=== PATIENT | male | born 1995 | race African-American/Black ===

== ENCOUNTER 2016-07-26 02:51 | Emergency (ER) | payer SELFPAY ==
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
== END 2016-07-26 04:31 | disposition home or self-care (01) ==
LOC: NAV ERS 02:51
DX: S09.93XA Unspecified injury of face, initial encounter (principal); S50.01XA Contusion of right elbow, initial encounter; S80.812A Abrasion, left lower leg, initial encounter; F17.210 Nicotine dependence, cigarettes, uncomplicated; W22.8XXA Striking against or struck by other objects, initial encounter
CPT/HCPCS: 70450; 70486

== ENCOUNTER 2017-05-19 19:41 | Emergency (ER) | payer SELFPAY ==
[2017-05-19] MEDS ORDERED: Ibuprofen 800 MG TAB ONE (19:54)
[2017-05-19] MEDS ORDERED: Acetaminophen 500 MG TAB ONE (19:54)
== END 2017-05-19 20:11 | disposition home or self-care (01) ==
LOC: NAV ERS 19:41
DX: J11.1 Influenza due to unidentified influenza virus with other respiratory manifestations (principal); F17.210 Nicotine dependence, cigarettes, uncomplicated
CPT/HCPCS: 99283

== ENCOUNTER 2019-02-14 12:19 | Emergency (ER) | payer SELFPAY ==
[2019-02-14] MEDS ORDERED: Azithromycin 250 MG TAB ONE (12:51)
[2019-02-14] MEDS ORDERED: Lidocaine 1% (PF) 30 ML VIAL ONE (12:51)
[2019-02-14] MEDS ORDERED: cefTRIAXone\\ROCEPHIN 250 MG VIAL ONE (12:51)
[2019-02-14 20:11] LABS: Chlam.trachomatis by PCR,Urine Not Detected (NotDetected)
[2019-02-14 22:16] LABS: Syphilis Antibody Nonreactive (Nonreactive); Syphilis Antibody Index 0.06 S/CO (<1.00 Non-Reactive)
[2019-02-14 23:31] LABS: HBCM Index 0.06 S/CO (0-0.79); HBSAg Index 0.16 S/CO (0-0.99); HIV (1/2) Antibody/Antigen Non-Reactive (NonReactive); HIV 1/2 INDEX 0.06 S/CO (<1.00); Hep A IgM AB Non-Reactive (NonReactive); Hep B Surf Ag Non-Reactive S/CO (NonReactive); Hep C IgG Ab Non-Reactive (NonReactive); Hep C Index 0.05 S/CO (0-0.79); Hepatitis B Core IgM Abs Non-Reactive (NonReactive)
== END 2019-02-14 13:15 | disposition home or self-care (01) ==
LOC: NAV ERS 12:19
DX: N34.1 Nonspecific urethritis (principal); F17.210 Nicotine dependence, cigarettes, uncomplicated
CPT/HCPCS: 36415; 80074; 86780; 87389; 87491; 87591; 96372; 99283; J0696; J2001

== ENCOUNTER 2019-03-14 18:22 | Emergency (ER) | payer SELFPAY ==
[2019-03-14] MEDS ORDERED: Acetaminophen 500 MG TAB ONE (18:50)
[2019-03-14] MEDS ORDERED: Ibuprofen 800 MG TAB ONE (18:50)
[2019-03-14] MEDS ORDERED: Ondansetron ODT 4 MG TAB ONE (18:50)
[2019-03-14] MEDS ORDERED: Sodium Chloride 0.9% 1,000 ML ONE (19:16)
--- NOTE | 2019-03-14 19:37 | CT ---
EXAM: CT brain without contrast HISTORY: Headache COMPARISON: 07/26/2016 TECHNIQUE: Multiple contiguous axial images were obtained and a CT of the brain without contrast. FINDINGS: The brain is normal in morphology and attenuation without focal lesions or confluent areas of infarction. There is no evidence of hydrocephalus, intracranial hemorrhage, or extra-axial fluid collection. The calvarium and overlying soft tissues are unremarkable. The visualized paranasal sinuses and masto id air cells are well aerated. IMPRESSION: No evidence of acute intracranial abnormality
[2019-03-14 19:47] LABS: ALT (SGPT) 27 U/L (8-55); AST (SGOT) 27 U/L (5-34); Albumin 4.4 g/dL (3.5-5.0); Alkaline Phosphatase 55 U/L (40-110); Anion Gap 16 mmol/L (10-20); BUN (Urea Nitrogen) 9 mg/dL (8.9-20.6); Bilirubin, Total 0.8 mg/dL (0.2-1.2); CRP (Inflammatory) 0.79 mg/dL (= or < 0.5); Calc. Creatinine Clearance 0 mL/min (70-130); Calcium 9.2 mg/dL (7.8-10.44); Carbon Dioxide 22 mmol/L (22-29); Chloride 101 mmol/L (98-107); Estimated GFR-MDRD Greater than 90; Globulin 3.3 g/dL (2.4-3.5); Glucose 103 mg/dL (70-105); Potassium 3.8 mmol/L (3.5-5.1); Protein, Total 7.7 g/dL (6.0-8.3); Sodium 135 mmol/L (136-145)
[2019-03-14 19:52] LABS: Hemoglobin 15.5 g/dL (14.0-18.0); Mean Corpuscular HGB CONC 32.7 g/dL (32.0-36.0); Mean Corpuscular Hemoglobin 29.9 pg (27.0-31.0); Mean Corpuscular Volume 91.5 fL (78.0-98.0); Mean Platelet Volume 9.1 fL (7.4-10.4); Platelet Count 185 thou/uL (130-400); RBC Distribution Width 11.1 % (11.5-14.5); Red Blood Cell (RBC) Count 5.19 mill/uL (4.70-6.10)
[2019-03-14 20:08] LABS: Band 1 % (5-11); Lymphocytes 17 % (21-51); MDiff Complete? YES; Monocytes 13 % (0-10); Neutrophil 69 % (42-75); Platelet Morphology Comment Appears Adequate; RBC Morphology Normal
== END 2019-03-14 20:38 | disposition home or self-care (01) ==
LOC: NAV ERS 18:22
DX: R51 Headache (principal); R50.9 Fever, unspecified; F17.210 Nicotine dependence, cigarettes, uncomplicated
CPT/HCPCS: 70450; 80053; 83605; 85025; 86140; 87081; 87430; 87804; J7050; Q0162

== ENCOUNTER 2022-01-15 14:27 | Emergency (ER) | payer SELFPAY ==
[2022-01-15] MEDS ORDERED: Cyclobenzaprine 10 MG TAB ONE (14:55)
[2022-01-15] MEDS ORDERED: Ibuprofen 800 MG TAB ONE (14:55)
== END 2022-01-15 15:08 | disposition home or self-care (01) ==
LOC: NAV ERS 14:27
DX: S39.012A Strain of muscle, fascia and tendon of lower back, initial encounter (principal); X50.0XXA Overexertion from strenuous movement or load, initial encounter; F17.210 Nicotine dependence, cigarettes, uncomplicated
CPT/HCPCS: 99283

== ENCOUNTER 2022-10-20 10:57 | Emergency (ER) | payer SELFPAY | END 2022-10-20 12:04 | disposition home or self-care (01) | LOC: NAV ERS 10:57 | DX: J06.9 Acute upper respiratory infection, unspecified (principal); J32.9 Chronic sinusitis, unspecified | CPT/HCPCS: 99283 ==

== ENCOUNTER 2022-12-09 07:25 | Emergency (ER) | payer SELFPAY | END 2022-12-09 08:06 | disposition short-term general hospital (02) | LOC: NAV ERS 07:25 | DX: N50.811 Right testicular pain (principal); F17.210 Nicotine dependence, cigarettes, uncomplicated | CPT/HCPCS: 99284 ==

== ENCOUNTER 2023-09-22 06:27 | Emergency (ER) | payer SELFPAY | END 2023-09-22 07:03 | disposition home or self-care (01) | LOC: NAV ERS 06:27 | DX: K13.79 Other lesions of oral mucosa (principal); H92.02 Otalgia, left ear; F17.210 Nicotine dependence, cigarettes, uncomplicated | CPT/HCPCS: 99282 ==